=== PATIENT | female | born 1980 | race African-American/Black ===

== ENCOUNTER 2022-02-11 22:00 | Emergency (ER) | payer BC ==
[~2022-02-11] VITALS: Ht 170.2 cm; Wt 112.1 kg
--- NOTE | 2022-02-11 22:32 | PHYS DOC ---
General Adult EDM: Chief Complaint: LOWER EXT PAIN HPI: HPI: 41-year-old female presents with a left posterior knee pain. The patient's been having this pain off and on for several months. She feels like its been getting more frequent. She made a mistake of looking this up on [employer] today and became concerned about a DVT. The patient's pain is an aching sensation mostly with walking and exercise. The patient has had no trauma. She had a long plane ride but the pain was occurring before this. She has no history of DVT. She is not a smoker. Denies shortness of breath, fever, chills. Review of Systems: Review of Systems: Constitutional: Denies fever or chills Eyes: Denies change in visual acuity HENT: Denies nasal congestion or sore throat Respiratory: Denies cough or shortness of breath Cardiovascular: Denies chest pain or edema GI: Denies abdominal pain, nausea, vomiting, bloody stools or diarrhea : Denies dysuria Musculoskeletal: Left posterior knee pain Integument: Denies rash Neurologic: Denies headache, focal weakness or sensory changes Endocrine: Denies polyuria or polydipsia Lymphatic: Denies swollen glands Psychiatric: Denies depression or anxiety Allergies: Allergies: Allergies Coded Allergies Type Severity Reaction Last Updated Verified No Known Drug Allergies 02/11/22 No Physical Exam: PE: Constitutional: Well developed, well nourished, obese, no acute distress, non- toxic appearance. [] HENT: Normocephalic, atraumatic, bilateral external ears normal, oropharynx moist, no oral exudates, nose normal. [] Eyes: PERRLA, EOMI, conjunctiva normal, no discharge. [] Neck: Normal range of motion, no tenderness, supple, no stridor. [] Cardiovascular:Heart rate regular rhythm, no murmur [] Lungs & Thorax: Bilateral breath sounds clear to auscultation [] Abdomen: Bowel sounds normal, soft, no tenderness, no masses, no pulsatile masses. [] Skin: Warm, dry, no erythema, no rash. [] Back: No tenderness, no CVA tenderness. [] Extremities: Lower extremity is soft to palpation, similar diameter. Tenderness with palpation of the lateral posterior knee with no obvious mass palpated. [] Neurologic: Alert and oriented X 3, normal motor function, normal sensory function, no focal deficits noted. [] Psychologic: Affect normal, judgement normal, mood normal. [] Current Patient Data: Vital Signs: Vital Signs Date Time Temp Pulse Resp B/P (MAP) Pulse Ox O2 Delivery O2 Flow Rate FiO2 02/11/22 22:06 98.2 79 16 123/76 (92) 98 Room Air EKG: EKG: [] Radiology/Procedures: Radiology/Procedures: [] Heart Score: C/O Chest Pain: N/A Risk Factors: Risk Factors: DM, Current or recent (<one month) smoker, HTN, HLP, family history of CAD, obesity. Risk Scores: Score 0 - 3: 2.5% MACE over next 6 weeks - Discharge Home Score 4 - 6: 20.3% MACE over next 6 weeks - Admit for Clinical Observation Score 7 - 10: 72.7% MACE over next 6 weeks - Early Invasive Strategies Course & Med Decision Making: Course & Med Decision Making Pertinent Labs and Imaging studies reviewed. (See chart for details) The patient's D-dimer is positive. I have ordered an ultrasound of her left lower extremity. The patient's ultrasound is negative for DVT. This is likely musculoskeletal in nature. I did discuss with the patient the quality of her shoes that she uses to exercise. She tells me that they are older and getting worn down in certain areas. I have advised that she consider new shoes and replacing them more often as this may help. She can follow-up with orthopedics or her primary care physician as needed. She is stable for discharge at this time. [] Marie Disclaimer: Marie Disclaimer: This electronic medical record was generated, in whole or in part, using a voice recognition dictation system. Departure Departure: Impression: Primary Impression: Posterior left knee pain Disposition: HOME / SELF CARE / HOMELESS Condition: STABLE Referrals: PCP,UNKNOWN (PCP) Patient Instructions: Knee Pain, [id number] SUSAN PERALES DO February 11, 2022 22:32
[2022-02-12 01:20] VITALS: BP 128/78
--- NOTE | 2022-02-12 01:27 | RAD ---
Left lower extremity venous Doppler ultrasound History: Reason: elevated D-dimer, pain left posterior knee / Spl. Instructions: US called at 2355 / History: Comparison: None. Procedure: Color flow Doppler, Doppler spectral analysis, and 2D images are obtained with and without compression in the area of the common femoral vein, superficial femoral vein - femoral vein junction , main femoral vein (superficial femoral vein) and popliteal vein. Veins of the proximal calf are als o imaged. Findings: There is normal color flow, augmentation, and compressibility of all visualized vein segments. No loretta dence of deep venous thrombus is present. IMPRESSION: No evidence of left lower extremity deep venous thrombosis. Electronically signed by: David Hackett MD (02/12/2022 1:24 AM) [email or web address]
== END 2022-02-12 01:23 | disposition home or self-care (01) ==
LOC: ER 22:00
DX: M25.562 Pain in left knee (principal)
CPT/HCPCS: 36415; 85379; 93971; 99284